=== PATIENT | female | born 1955 | race American Indian/Alaskan Native ===

== ENCOUNTER 2017-07-21 10:13 | Outpatient (CLI) | payer MEDICARE ==
--- NOTE | 2017-07-21 19:04 | XRay Report ---
FINAL REPORT EXAM: XR SPINE LUMBOSACRAL 6+V HISTORY: LUMBAR RADICULOPATHY TECHNIQUE: AP, lateral and coned-down views of lumbar spine. PRIORS: None. FINDINGS: Extensive postsurgical changes in lower lumbar spine, including interspace device in the L3-4 level and probable paraspinal bone graft material. Additional fixation hardware in right SI joint partially visualized. Variable disc space narrowing and endplate spurring in the T12-L1, L2-3 and L4-5 levels. Very mild anterolisthesis in L3-4 level. No loss of height or gross malalignment of lumbar vertebral bodies. No obvious osseous destruction. Paraspinal soft tissues grossly unremarkable. IMPRESSION: 1. No acute osseous abnormality. 2. Postsurgical and degenerative change.
--- NOTE | 2017-07-21 19:07 | XRay Report ---
FINAL REPORT EXAM: XR SPINE THORACIC 4+V HISTORY: POST LAMINECTOMY TECHNIQUE: AP and lateral views of thoracic spine. PRIORS: None. FINDINGS: No loss of height or gross malalignment of thoracic vertebral bodies. No obvious osseous destruction. Thoracic disc spaces maintained. Paraspinal soft tissues grossly unremarkable. IMPRESSION: 1. No acute osseous abnormality.
== END 2017-07-21 10:14 | disposition home or self-care (01) ==
LOC: XRAY 10:13
PROVIDERS: ATTEND Anesthesiology
DX: M47.26 Other spondylosis with radiculopathy, lumbar region (principal); M96.1 Postlaminectomy syndrome, not elsewhere classified; I10 Essential (primary) hypertension; F32.9 Major depressive disorder, single episode, unspecified; F41.9 Anxiety disorder, unspecified; F17.200 Nicotine dependence, unspecified, uncomplicated
CPT/HCPCS: 72074; 72114

== ENCOUNTER 2019-03-03 14:00 | Observation (INO) | payer MEDICARE ==
--- NOTE | 2019-03-03 14:22 | Event Note ---
ED Screening Note ED Screening Note: pt presents with dizziness and lightheadness that began two days ago left sided JOSHI began 1 hour ago right sided CP for two weeks no vision no numbness or weakness PMHx chronic back pain, HTN, DM This initial assessment/diagnostic orders/clinical plan/treatment(s) is/are subject to change based on patients health status, clinical progression and re- assessment by fellow clinical providers in the ED. Further treatment and workup at subsequent clinical providers discretion. Patient/guardian urged not to elope from the ED as their condition may be serious if not clinically assessed and managed. Initial orders include: CP protocol and CT head
[2019-03-03 14:46] LABS: Basophils % (Auto) 0.4 % (0.0-1.8); Eosinophils # (Auto) 0.2 K/mm3 (0.0-0.4); Eosinophils % (Auto) 1.7 % (0.0-4.3); Hematocrit 40.1 % (30.3-42.9); Hemoglobin 13.2 gm/dl (10.1-14.3); Lymphocytes # (Auto) 4.4 K/mm3 (1.2-5.4); Lymphocytes % (Auto) 38.4 % (13.4-35.0); Mean Corpuscular HGB Conc 33 % (30-34); Mean Corpuscular Volume 82 fl (79-97); Monocytes % (Auto) 8.4 % (0.0-7.3); Platelet Count 217 K/mm3 (140-440); Red Blood Count 4.88 M/mm3 (3.65-5.03); Red Cell Distribution Width 14.8 % (13.2-15.2)
[2019-03-03 15:09] LABS: Alanine Aminotransferase 19 units/L (7-56); Albumin 4.4 g/dL (3.9-5); BUN/Creatinine Ratio 15; Blood Urea Nitrogen 15 mg/dL (7-17); Calcium 9.9 mg/dL (8.4-10.2); Hemolysis Index 11
--- NOTE | 2019-03-03 15:32 | XRay Report ---
CHEST 2 VIEWS INDICATION: Chest pain. COMPARISON: None FINDINGS: Support devices: None. Heart: Within normal limits. Lungs/pleura: No acute air space or interstitial disease. No pneumothorax. Additional findings: None. IMPRESSION: No acute findings. Signer Name: Ramiro Nicole Jr, MD Signed: 03/03/2019 3:27 PM Workstation Name: [id number]
--- NOTE | 2019-03-03 16:55 | Cat Scan Report ---
CT HEAD WITHOUT CONTRAST INDICATION / CLINICAL INFORMATION: dizziness. TECHNIQUE: All CT scans at this location are performed using CT dose reduction for ALARA by means of automated e xposure control. COMPARISON: None available. FINDINGS: HEMORRHAGE: None. EXTRA-AXIAL SPACES: Normal in size and morphology for the patient's age. VENTRICULAR SYSTEM: Normal in size and morphology for the patient's age. CEREBRAL PARENCHYMA: No significant abnormality. No acute territorial infarct. MIDLINE SHIFT OR HERNIATION: None. CEREBELLUM / BRAINSTEM: No significant abnormality. ORBITS: Normal as visualized. SOFT TISSUES of HEAD: No significant abnormality. CALVARIUM: No significant abnormality. PARANASAL SINUSES / MASTOID AIR CELLS: Normal as visualized. ADDITIONAL FINDINGS: None. IMPRESSION: 1. No acute intracranial abnormality. Signer Name: Kaylee Starr MD Signed: 03/03/2019 4:51 PM Workstation Name: [id number]
[2019-03-03 17:26] LABS: Bilirubin,Urine NEG (Negative); Blood,Urine SM (Negative); Color,Urine Yellow (Yellow); Protein,Urine <15 mg/dL mg/dL (Negative); Urobilinogen,Urine < 2.0 mg/dL (<2.0)
--- NOTE | 2019-03-03 17:40 | Emergency Department Report ---
ED Dizziness HPI - General Chief Complaint: Dizziness Stated Complaint: FALL/LIGHTHEADED/DIZZINESS Time Seen by Provider: 03/03/19 14:20 Source: patient Mode of arrival: Ambulatory Limitations: No Limitations - History of Present Illness Initial Comments: Patient is a 63-year-old female that presents to the Emergency room with complaints of dizziness and lightheaded 2 days. Patient states that her symptoms are worsening. Patient states her symptoms are worse when she bends over and better with rest. Patient states her gait is unsteady and she has fallen multiple times. Patient denies trauma from the falls. Patient states she is having bilateral chest pain. Patient states her pain is better with rest and worse with exertion. MD Complaint: dizziness, lightheadedness -: Sudden Timing: sudden onset Description: sense of movement History of Same: No History of Trauma: No Severity: severe Improves With: rest Worsens With: movement, exertion Associated Symptoms: chest pain. denies: confusion, cough, diaphoresis, fever/chills, loss of appetite, malaise, rash, seizure, shortness of breath, syncope, weakness - Related Data Home Medications Medication Instructions Recorded Confirmed Last Taken Morphine ER [Ms Contin ER] 15 mg PO DAILY 08/04/13 09/30/15 09/29/15 Oxycodone HCl/Acetaminophen 1 tab PO TID 08/04/13 09/30/15 09/29/15 [Percocet 10/325 mg] Pregabalin [Lyrica] 75 cap PO TID 08/04/13 09/30/15 09/29/15 Valsartan [Diovan] 80 mg PO DAILY 08/04/13 09/30/15 09/29/15 metFORMIN [Glucophage] 500 mg PO DAILY 08/04/13 09/30/15 09/29/15 Pravastatin Sodium [Pravastatin] 40 mg PO QHS 09/30/15 09/30/15 09/29/15 Previous Rx's Medication Instructions Recorded Last Taken Type Hydrocortisone [Anucort-HC SUPPOS] 25 mg RC BID #10 supp.rect 09/30/15 Unknown Rx traMADol [Ultram] 50 mg PO Q6HR PRN #10 tablet 09/30/15 Unknown Rx Allergies Allergy/AdvReac Type Severity Reaction Status Date / Time aspirin AdvReac Unknown Verified 03/03/19 14:02 Sulfa (Sulfonamide AdvReac Unknown Verified 03/03/19 14:02 Antibiotics) ED Review of Systems ROS: Stated complaint: FALL/LIGHTHEADED/DIZZINESS Other details as noted in HPI Constitutional: denies: chills, fever Eyes: denies: eye pain, eye discharge, vision change ENT: denies: ear pain, throat pain Respiratory: denies: cough, shortness of breath, wheezing Cardiovascular: chest pain. denies: palpitations Endocrine: no symptoms reported Gastrointestinal: denies: abdominal pain, nausea, diarrhea Genitourinary: denies: urgency, dysuria, discharge Musculoskeletal: denies: back pain, joint swelling, arthralgia Skin: denies: rash, lesions Neurological: denies: headache, weakness, paresthesias Psychiatric: denies: anxiety, depression Hematological/Lymphatic: denies: easy bleeding, easy bruising ED Past Medical Hx - Past Medical History Previous Medical History?: Yes Hx Hypertension: Yes Hx Diabetes: Yes Hx GERD: Yes Hx Sickle Cell Disease: Yes (trait) Hx Arthritis: Yes Additional medical history: chronic back pain. neuropathy - Surgical History Past Surgical History?: Yes Additional Surgical History: partial hysterectomy. back surgery/fusion - Family History Family history: no significant - Social History Smoking Status: Never Smoker Substance Use Type: None - Medications Home Medications: Home Medications Medication Instructions Recorded Confirmed Last Taken Type Morphine ER [Ms Contin ER] 15 mg PO DAILY 08/04/13 09/30/15 09/29/15 History Oxycodone HCl/Acetaminophen 1 tab PO TID 08/04/13 09/30/15 09/29/15 History [Percocet 10/325 mg] Pregabalin [Lyrica] 75 cap PO TID 08/04/13 09/30/15 09/29/15 History Valsartan [Diovan] 80 mg PO DAILY 08/04/13 09/30/15 09/29/15 History metFORMIN [Glucophage] 500 mg PO DAILY 08/04/13 09/30/15 09/29/15 History Hydrocortisone [Anucort-HC SUPPOS] 25 mg RC BID #10 supp.rect 09/30/15 Unknown Rx Pravastatin Sodium [Pravastatin] 40 mg PO QHS 09/30/15 09/30/15 09/29/15 History traMADol [Ultram] 50 mg PO Q6HR PRN #10 tablet 09/30/15 Unknown Rx ED Physical Exam - General Limitations: No Limitations General appearance: alert, in no apparent distress - Head Head exam: Present: atraumatic, normocephalic - Eye Eye exam: Present: normal appearance, PERRL Pupils: Present: normal accommodation - ENT ENT exam: Present: mucous membranes moist - Neck Neck exam: Present: normal inspection - Respiratory Respiratory exam: Present: normal lung sounds bilaterally. Absent: respiratory distress, wheezes, rales - Cardiovascular Cardiovascular Exam: Present: regular rate, normal rhythm. Absent: systolic murmur, diastolic murmur, rubs, gallop - GI/Abdominal GI/Abdominal exam: Present: soft, normal bowel sounds - Extremities Exam Extremities exam: Present: normal inspection - Back Exam Back exam: Present: normal inspection - Neurological Exam Neurological exam: Present: alert, oriented X3 - Psychiatric Psychiatric exam: Present: normal affect, normal mood - Skin Skin exam: Present: warm, dry, intact, normal color. Absent: rash ED Course Vital Signs 03/03/19 03/03/19 14:03 14:21 Temperature 98.5 F Pulse Rate 97 H Respiratory 16 16 Rate Blood Pressure 139/67 [Left] O2 Sat by Pulse 97 97 Oximetry - Reevaluation(s) Reevaluation #1: Patient already received fluids. Patient still dizzy. Patient unable to ambulate without stumbling. Patient will be admitted to the hospitalist service. I discussed all results with patient. Discussed plan of care with patient. Patient agrees with plan of care. 03/03/19 19:44 - Consultations Consultation #1: Hospitalist consultation for admission. Hospitalist to admit patient 03/03/19 19:44 ED Medical Decision Making - Lab Data Result diagrams: 03/03/19 14:35 03/03/19 14:35 - EKG Data -: EKG Interpreted by Ms EKG shows normal: sinus rhythm, axis, intervals, QRS complexes, ST-T waves Rate: normal - Radiology Data Radiology results: report reviewed CT HEAD WITHOUT CONTRAST INDICATION / CLINICAL INFORMATION: dizziness. TECHNIQUE: All CT scans at this location are performed using CT dose reduction for ALARA by means of automated exposure control. COMPARISON: None available. FINDINGS: HEMORRHAGE: None. EXTRA-AXIAL SPACES: Normal in size and morphology for the patient's age. VENTRICULAR SYSTEM: Normal in size and morphology for the patient's age. CEREBRAL PARENCHYMA: No significant abnormality. No acute territorial infarct. MIDLINE SHIFT OR HERNIATION: None. CEREBELLUM / BRAINSTEM: No significant abnormality. ORBITS: Normal as visualized. SOFT TISSUES of HEAD: No significant abnormality. CALVARIUM: No significant abnormality. PARANASAL SINUSES / MASTOID AIR CELLS: Normal as visualized. ADDITIONAL FINDINGS: None. IMPRESSION: 1. No acute intracranial abnormality. CHEST 2 VIEWS INDICATION: Chest pain. COMPARISON: None FINDINGS: Support devices: None. Heart: Within normal limits. Lungs/pleura: No acute air space or interstitial disease. No pneumothorax. Additional findings: None. IMPRESSION: No acute findings. - Differential Diagnosis dizziness. Unsteady gait. Falls. Critical Care Time: Yes Critical care attestation.: If time is entered above; I have spent that time in minutes in the direct care of this critically ill patient, excluding procedure time. Critical Care Time: 35 minutes ED Disposition Clinical Impression: Dizziness, Falls frequently, Unstable gait HTN (hypertension) Qualifiers: Hypertension type: essential hypertension Qualified Code(s): I10 - Essential (primary) hypertension Type II diabetes mellitus Qualifiers: Diabetes mellitus terminal operator insulin use: unspecified shelter insulin use status Diabetes mellitus complication status: with other specified complication Qualified Code(s): E11.69 - Type 2 diabetes mellitus with other specified complication Disposition: 09 OP ADMIT IP TO THIS HOSP Is pt being admited?: Yes Does the pt Need Aspirin: No Condition: Critical Instructions: Hypertension (ED) Time of Disposition: 19:46
[2019-03-03] MEDS ORDERED: NACL 0.9% 1000 ML 1,000 ML IV ONE (19:24)
[2019-03-03] MEDS ORDERED: PERCOCET 5/325 PO PRN (22:02)
[2019-03-03] MEDS ORDERED: D50W (25GM) Syringe IV PRN (22:02)
[2019-03-03] MEDS ORDERED: ZOFRAN IV PRN (22:02)
[2019-03-03] MEDS ORDERED: SODIUM CHLORIDE FLUSH SYRINGE 10 ML IV PRN (22:02)
[2019-03-03] MEDS ORDERED: TYLENOL PO PRN (22:02)
--- NOTE | 2019-03-03 22:09 | History and Physical Report ---
History of Present Illness Date of examination: 03/03/19 History of present illness: 63-year-old man with a history of hypertension, diabetes, GERD, chronic pain comes emergency room with complaint of feeling dizzy, off balance 2 days. She said these symptoms before and was diagnosed with vertigo, instructed to do the exercises which brought relief to her symptoms. She stated that this time the exercises did not help. Also complaining of chest pain in the right chest which she describes as sharp pain, intubated for a few seconds, intensity 4/10, no radiation, genitalia exam factors. Denies nausea vomiting, shortness rate, diaphoresis or palpitation Review Of Systems: Constitutional: no weight loss, fever, chills Ears, eyes, nose, mouth and throat: no nasal congestion, no nasal discharge, no sinus pressure, blurry vision, diplopia Neck: No neck pain or rigidity. Cardiovascular: No palpitations, chest pain Respiratory: No shortness of breath, cough Gastrointestinal: No hematochezia, abdominal pain Genitourinary : no dysuria, frequency , hematuria Musculoskeletal: no muscle ache , joint pain Integumentary: no rash, no pruritis Neurological: no parathesias, focal weakness Endocrine: no cold or heat intolerance, no polyuria or polydipsia Hematologic/Lymphatic: no easy bruising, no easy bleeding, no gland swelling Allergic/Immunologic: no urticaria, no angioedema. PAST MEDICAL HISTORY:hypertension, diabetes, GERD, chronic pain PAST SURGICAL HISTORY: Hysterectomy, back FAMILY HISTORY:hypertension, diabetes SOCIAL HISTORY: + tobacco, no drugs, alcohol Medications and Allergies Allergies Allergy/AdvReac Type Severity Reaction Status Date / Time aspirin AdvReac Unknown Verified 03/03/19 14:02 Sulfa (Sulfonamide AdvReac Unknown Verified 03/03/19 14:02 Antibiotics) Home Medications Medication Instructions Recorded Confirmed Last Taken Type Morphine ER [Ms Contin ER] 15 mg PO DAILY 08/04/13 09/30/15 09/29/15 History Oxycodone HCl/Acetaminophen 1 tab PO TID 08/04/13 09/30/15 09/29/15 History [Percocet 10/325 mg] Pregabalin [Lyrica] 75 cap PO TID 08/04/13 09/30/15 09/29/15 History Valsartan [Diovan] 80 mg PO DAILY 0109/30/15 09/29/15 History metFORMIN [Glucophage] 500 mg PO DAILY 08/04/13 09/30/15 09/29/15 History Hydrocortisone [Anucort-HC SUPPOS] 25 mg RC BID #10 supp.rect 09/30/15 Unknown Rx Pravastatin Sodium [Pravastatin] 40 mg PO QHS 09/30/15 09/30/15 09/29/15 History traMADol [Ultram] 50 mg PO Q6HR PRN #10 tablet 09/30/15 Unknown Rx Active Meds: Active Medications Acetaminophen (Tylenol) 650 mg PO Q4H PRN PRN Reason: Pain MILD(1-3)/Fever >100.5/JOSHI Dextrose (D50w (25gm) Syringe) 50 ml IV PRN PRN PRN Reason: Hypoglycemia Enoxaparin Sodium (Lovenox) 30 mg SUB-Q QDAY LOS Ondansetron HCl (Zofran) 4 mg IV Q8H PRN PRN Reason: Nausea And Vomiting Oxycodone/Acetaminophen (Percocet 5/325) 1 tab PO Q6H PRN PRN Reason: Pain, Moderate (4-6) Sodium Chloride (Sodium Chloride Flush Syringe 10 Ml) 10 ml IV BID LOS Sodium Chloride (Sodium Chloride Flush Syringe 10 Ml) 10 ml IV PRN PRN PRN Reason: LINE FLUSH Exam - Physical Exam Narrative exam: General Apperance: The patient sitting in bed no acute distress HEENT: Normocephalic, atraumatic. Pupils equally round and reactive to light, extraocular movement intact, and no sclericterus or JVD or thyromegaly or nodule. Neck supple, no carotid bruit, mucous membranes moist, no exudate or erythema Heart: S1-S2, regular is rhythm Lungs: Clear to auscultation bilaterally, breathing comfortable Abdomen: Positive bowel sounds, soft, nontender, nondistended, no organomegaly Extremities: No edema cyanosis clubbing Skin: no rash, nodule, warm and dry Neuro:CN 2 -12 intact, motor/sensory intact, speech is fluent - Constitutional Vitals: Temp Pulse Resp BP Pulse Ox 98.5 F 97 H 16 139/67 97 03/03/19 14:21 03/03/19 14:21 03/03/19 14:21 03/03/19 14:21 03/03/19 14:21 Results - Labs CBC & Chem 7: 03/03/19 14:35 03/03/19 14:35 Labs: Abnormal lab results 03/03/19 03/03/19 Range/Units 14:35 14:35 WBC 11.3 H (4.5-11.0) K/mm3 MCH 27 L (28-32) pg Lymph % (Auto) 38.4 H (13.4-35.0) % [place] % (Auto) 8.4 H (0.0-7.3) % [place] # 1.0 H (0.0-0.8) K/mm3 Carbon Dioxide 20 L (22-30) mmol/L Glucose 177 H (65-100) mg/dL - Imaging and Cardiology EKG: image reviewed Chest x-ray: report reviewed CT Scan - head: report reviewed Assessment and Plan Assessment Atypical chest pain Dizziness Hyypertension Diabetes GERD Chronic pain Plan Admit medicine Check cardiac enzymes, stress test, carotid Doppler Check fingersticks initiate insulin sliding scale, start meclizine Continue her present outpatient medications Percocet, DVT prophylaxis
[2019-03-03] MEDS: ANTIVERT PO SCH (22:39)
[2019-03-03] MEDS ORDERED: ANTIVERT ONE (22:40)
[2019-03-04 05:48] LABS: Basophils % (Auto) 0.4 % (0.0-1.8); Eosinophils # (Auto) 0.2 K/mm3 (0.0-0.4); Eosinophils % (Auto) 2.6 % (0.0-4.3); Hematocrit 36.6 % (30.3-42.9); Lymphocytes # (Auto) 2.6 K/mm3 (1.2-5.4); Lymphocytes % (Auto) 38.1 % (13.4-35.0); Mean Corpuscular HGB Conc 33 % (30-34); Mean Corpuscular Volume 82 fl (79-97); Monocytes # (Auto) 0.7 K/mm3 (0.0-0.8); Monocytes % (Auto) 10.3 % (0.0-7.3); Platelet Count 183 K/mm3 (140-440); Red Blood Count 4.46 M/mm3 (3.65-5.03); Red Cell Distribution Width 14.6 % (13.2-15.2)
[2019-03-04] MEDS: ANTIVERT PO SCH ×4 (05:54→23:17)
[2019-03-04 06:11] LABS: BUN/Creatinine Ratio 21; Blood Urea Nitrogen 17 mg/dL (7-17); Calcium 9.3 mg/dL (8.4-10.2); Hemolysis Index 38
[2019-03-04] MEDS ORDERED: LEXISCAN IV ONE (07:20)
--- NOTE | 2019-03-04 11:33 | Vascular Lab Report ---
BILATERAL CAROTID DOPPLER ULTRASOUND INDICATION : Dizziness for 2 days, hypertension, diabetes TECHNIQUE: Grayscale and color Doppler imaging performed through the neck. COMPARISON: None FINDINGS: Right: There is mild calcific plaques are noted in the proximal ICA. Peak systolic velocity in the CCA is 65 cm/s with end-diastolic velocity of 20 cm/s. Peak systolic velocity in the proximal ICA is 65 cm/s with end-diastolic velocity of 17 cm/s. ICA to CCA ratio is less than 2. There is antegrade flow in the ECA and the vertebral artery. Left: There is no significant atherosclerotic disease. Peak systolic velocity in the CCA is 70 cm/s w ith end-diastolic velocity of 19 cm/s. Peak systolic velocity in the proximal ICA is 50 cm/s with end -diastolic velocity of 16 cm/s. ICA to CCA ratio is less than 2. There is antegrade flow in the ECA and the vertebral artery. IMPRESSION: No hemodynamically significant stenosis by NASCET criteria. There is less than 50% lumina l narrowing in both carotid systems. Signer Name: Ramiro Nicole Jr, MD Signed: 03/04/2019 11:29 AM Workstation Name: [id number]
[2019-03-04] MEDS: SODIUM CHLORIDE FLUSH SYRINGE 10 ML IV SCH ×2 (12:23→23:18)
[2019-03-04] MEDS: LOVENOX SUB-Q SCH (13:19)
--- NOTE | 2019-03-04 13:56 | Progress Note ---
Assessment and Plan Assessment and plan: Chest pain. Continue to monitor cardiac isoenzymes. Serial EKG. Follow-up stress test results. BPH. Continue meclizine. Patient still with significant symptoms. Diabetes mellitus type 2. Continue Accu-Cheks and sliding scale insulin. Hypertension. Continue antihypertensive medications. Disposition. Anticipate discharge in a.m. History Interval history: No new issues overnight. Hospitalist Physical - Constitutional Vitals: Temp Pulse Resp BP Pulse Ox 98.3 F 82 16 157/67 97 03/04/19 12:21 03/04/19 12:21 03/04/19 12:21 03/04/19 12:21 03/04/19 12:21 General appearance: Present: no acute distress, well-nourished - EENT Eyes: Present: PERRL, EOM intact ENT: hearing intact, clear oral mucosa, dentition normal - Neck Neck: Present: supple, normal ROM - Respiratory Respiratory effort: normal Respiratory: bilateral: CTA - Cardiovascular Rhythm: regular Heart Sounds: Present: S1 & S2. Absent: gallop, rub - Extremities Extremities: no ischemia, No edema, Full ROM - Abdominal General gastrointestinal: soft, non-tender, non-distended, normal bowel sounds - Integumentary Integumentary: Present: clear, warm, dry - Neurologic Neurologic: CNII-XII intact, moves all extremities Results - Labs CBC & Chem 7: 03/04/19 05:05 03/04/19 05:05 Labs: Laboratory Last Values WBC 6.9 K/mm3 (4.5-11.0) 03/04/19 05:05 RBC 4.46 M/mm3 (3.65-5.03) 03/04/19 05:05 Hgb 12.0 gm/dl (10.1-14.3) 03/04/19 05:05 Hct 36.6 % (30.3-42.9) 03/04/19 05:05 MCV 82 fl (79-97) 03/04/19 05:05 MCH 27 pg (28-32) L 03/04/19 05:05 MCHC 33 % (30-34) 03/04/19 05:05 RDW 14.6 % (13.2-15.2) 03/04/19 05:05 Plt Count 183 K/mm3 (140-440) 03/04/19 05:05 Lymph % (Auto) 38.1 % (13.4-35.0) H 03/04/19 05:05 [place] % (Auto) 10.3 % (0.0-7.3) H 03/04/19 05:05 Eos % (Auto) 2.6 % (0.0-4.3) 03/04/19 05:05 Baso % (Auto) 0.4 % (0.0-1.8) 03/04/19 05:05 Lymph # 2.6 K/mm3 (1.2-5.4) 03/04/19 05:05 [place] # 0.7 K/mm3 (0.0-0.8) 03/04/19 05:05 Eos # 0.2 K/mm3 (0.0-0.4) 03/04/19 05:05 Baso # 0.0 K/mm3 (0.0-0.1) 03/04/19 05:05 Seg Neutrophils % 48.6 % (40.0-70.0) 03/04/19 05:05 Seg Neutrophils # 3.3 K/mm3 (1.8-7.7) 03/04/19 05:05 1362.34 ng/mlDDU (0-234) H 03/04/19 11:43 Sodium 140 mmol/L (137-145) 03/04/19 05:05 Potassium 4.3 mmol/L (3.6-5.0) 03/04/19 05:05 Chloride 103.9 mmol/L (98-107) 03/04/19 05:05 Carbon Dioxide 26 mmol/L (22-30) 03/04/19 05:05 14 mmol/L 03/04/19 05:05 BUN 17 mg/dL (7-17) 03/04/19 05:05 0.8 mg/dL (0.7-1.2) 03/04/19 05:05 Estimated GFR > 60 ml/min 03/04/19 05:05 21 % 03/04/19 05:05 Glucose 151 mg/dL (65-100) H 03/04/19 05:05 Calcium 9.3 mg/dL (8.4-10.2) 03/04/19 05:05 0.20 mg/dL (0.1-1.2) 03/03/19 14:35 AST 15 units/L (5-40) 03/03/19 14:35 ALT 19 units/L (7-56) 03/03/19 14:35 67 units/L (35-129) 03/03/19 14:35 < 0.010 ng/mL (0.00-0.029) 03/03/19 17:19 7.6 g/dL (6.3-8.2) 03/03/19 14:35 4.4 g/dL (3.9-5) 03/03/19 14:35 1.4 % 03/03/19 14:35 Yellow (Yellow) 03/03/19 14:22 Clear (Clear) 03/03/19 14:22 5.0 (5.0-7.0) 03/03/19 14:22 Ur Specific [place] 1.018 (1.003-1.030) 03/03/19 14:22 <15 mg/dl mg/dL (Negative) 03/03/19 14:22 >=500 mg/dL (Negative) 03/03/19 14:22 Neg mg/dL (Negative) 03/03/19 14:22 Sm (Negative) 03/03/19 14:22 Neg (Negative) 03/03/19 14:22 Neg (Negative) 03/03/19 14:22 < 2.0 mg/dL (<2.0) 03/03/19 14:22 Ur Leukocyte Esterase Tr (Negative) 03/03/19 14:22 2.0 /HPF (0.0-6.0) 03/03/19 14:22 1.0 /HPF (0.0-6.0) 03/03/19 14:22 U Epithel Cells (Auto) < 1.0 /HPF (0-13.0) 03/03/19 14:22 Active Medications - Current Medications Current Medications: Generic Name Dose Route Start Last Admin Trade Name Freq PRN Reason Stop Dose Admin Acetaminophen 650 mg 03/03/19 22:02 03/04/19 00:19 Tylenol PO 650 mg Q4H PRN Administration Pain MILD(1-3)/Fever >100.5/JOSHI Dextrose 50 ml 03/03/19 22:02 D50w (25gm) Syringe IV PRN PRN Hypoglycemia Enoxaparin Sodium 40 mg 03/04/19 10:00 03/04/19 13:19 Lovenox SUB-Q Not Given QDAY LOS Meclizine HCl 25 mg 03/03/19 22:13 03/04/19 12:23 Antivert PO 25 mg Q6HR LOS Administration Ondansetron HCl 4 mg 03/03/19 22:02 Zofran IV Q8H PRN Nausea And Vomiting Oxycodone/Acetaminophen 1 tab 03/03/19 22:02 Percocet 5/325 PO Q6H PRN Pain, Moderate (4-6) Sodium Chloride 10 ml 03/04/19 10:00 03/04/19 12:23 Sodium Chloride Flush Syringe 10 Ml IV 10 ml BID LOS Administration Sodium Chloride 10 ml 03/03/19 22:02 Sodium Chloride Flush Syringe 10 Ml IV PRN PRN LINE FLUSH
--- NOTE | 2019-03-05 00:42 | Treadmill Report ---
FINDINGS: Resting images revealed homogeneous radioisotope activity with slightly increased gut uptake. On post-Lexiscan, again similar uptake is noted. On gated scan, ejection fraction was noted to be 61%. There was transient ischemic dilatation of significance with 1.37. IMPRESSION: 1. Ejection fraction is normal. 2. There is no area of ischemia. 3. Transient ischemic dilatation of moderate degree, may suggest severe triple vessel disease and proximal disease. Clinical correlation and recommendation suggested. JOB# [id number] MATT/JEFERSON
[2019-03-05] MEDS: ANTIVERT PO SCH ×2 (05:21→11:50)
--- NOTE | 2019-03-05 07:58 | Discharge Summary ---
Providers - Providers Date of Admission: 03/03/19 22:02 Date of discharge: 03/05/19 Attending physician: ANTOINE PEREZ Primary care physician: [employer] Hospitalization Reason for admission: vertigo Condition: Critical Exam - Constitutional Vitals: Temp Pulse Resp BP Pulse Ox 98.0 F 78 18 129/66 96 03/05/19 04:28 03/05/19 04:28 03/05/19 04:28 03/05/19 04:28 03/05/19 04:28 Plan
[2019-03-05 08:34] VITALS: BP 147/87
[2019-03-05] MEDS: SODIUM CHLORIDE FLUSH SYRINGE 10 ML IV SCH (09:55)
[2019-03-05] MEDS: LOVENOX SUB-Q SCH (09:55)
--- NOTE | 2019-03-05 10:10 | Consultation ---
History of Present Illness Consult date: 03/05/19 Requesting physician: ANTOINE PEREZ Consult reason: other (abnormal stress test) History of present illness: Ms. Duncan is a 63 y/o female with a medical history significant for hypertension, diabetes and benign positional vertigo who presented to [facility] with dizziness, lightheadedness and chest pain x2 months. She is not followed by our practice. She describes the pain as right-sided, non-radiating and occurring intermittently at rest and with activity. Troponins were negative, and EKG was negative for STEMI; however, a stress test was abnormal, revealing transient ischemic dilatation of moderate degree, possibly suggesting severe triple vessel disease and proximal disease. An echocardiogram found an EF of 55 to 60 percent with abnormal LV diastolic filling and mildly thickened mitral va lve leaflets. She denies chest pain on examination this morning. Past History Past Medical History: hypertension Medications and Allergies Allergies Allergy/AdvReac Type Severity Reaction Status Date / Time aspirin AdvReac Unknown Verified 03/03/19 14:02 Sulfa (Sulfonamide AdvReac Unknown Verified 03/03/19 14:02 Antibiotics) Home Medications Medication Instructions Recorded Confirmed Last Taken Type Morphine ER [Ms Contin ER] 15 mg PO DAILY 08/04/13 03/04/19 2 Days Ago History ~03/02/19 Oxycodone HCl/Acetaminophen 10 mg PO TID 08/04/13 03/04/19 2 Days Ago History [Percocet 10/325 mg] ~03/02/19 Pregabalin [Lyrica] 75 cap PO BID 08/04/13 03/04/19 2 Days Ago History ~03/02/19 Valsartan [Diovan] 80 mg PO DAILY 08/04/13 03/04/19 2 Days Ago History ~03/02/19 Hydrocortisone [Anucort-HC SUPPOS] 25 mg RC BID #10 supp.rect 09/30/15 03/04/19 Unknown Rx Citalopram [celeXA] 10 mg PO QDAY #30 tablet 03/05/19 Unknown Rx Meclizine [Antivert] 25 mg PO Q6HR #20 tablet 03/05/19 Unknown Rx Pravastatin Sodium [Pravastatin] 40 mg PO QHS #30 tablet 03/05/19 Unknown Rx Verapamil [Calan] 240 mg PO DAILY #30 tablet 03/05/19 Unknown Rx cloNIDine [Catapres] 0.1 mg PO DAILY #30 tablet 03/05/19 Unknown Rx metFORMIN [Glucophage] 2,000 mg PO DAILY #30 tablet 03/05/19 Unknown Rx oxyCODONE /ACETAMINOPHEN [Percocet 1 tab PO Q6H PRN #8 tablet 03/05/19 Unknown Rx 5/325 mg] Active Meds: Active Medications Acetaminophen (Tylenol) 650 mg PO Q4H PRN PRN Reason: Pain MILD(1-3)/Fever >100.5/JOSHI Last Admin: 03/04/19 00:19 Dose: 650 mg Documented by: Dextrose (D50w (25gm) Syringe) 50 ml IV PRN PRN PRN Reason: Hypoglycemia Enoxaparin Sodium (Lovenox) 40 mg SUB-Q QDAY [facility] Last Admin: 03/05/19 09:55 Dose: 40 mg Documented by: Meclizine HCl (Antivert) 25 mg PO Q6HR [facility] Last Admin: 03/05/19 05:21 Dose: 25 mg Documented by: Ondansetron HCl (Zofran) 4 mg IV Q8H PRN PRN Reason: Nausea And Vomiting Oxycodone/Acetaminophen (Percocet 5/325) 1 tab PO Q6H PRN PRN Reason: Pain, Moderate (4-6) Sodium Chloride (Sodium Chloride Flush Syringe 10 Ml) 10 ml IV BID [facility] Last Admin: 03/05/19 09:55 Dose: 10 ml Documented by: Sodium Chloride (Sodium Chloride Flush Syringe 10 Ml) 10 ml IV PRN PRN PRN Reason: LINE FLUSH Review of Systems All systems: negative Neurological: other (dizziness, lightheadedness) Physical Examination Last Vital Signs Temp 98.1 F 03/05/19 07:41 Pulse 83 03/05/19 07:41 Resp 18 03/05/19 07:41 BP 147/87 03/05/19 07:41 Pulse Ox 95 03/05/19 07:41 General appearance: no acute distress HEENT: Positive: PERRL Neck: Positive: neck supple Cardiac: Positive: Reg Rate and Rhythm Lungs: Positive: Normal Exam Neuro: Positive: Grossly Intact Abdomen: Positive: Unremarkable Female genitourinary: deferred Skin: Positive: Clear Musculoskeletal: Normal Range of Motion Extremities: Present: normal Results 03/04/19 05:05 03/04/19 05:05 - Imaging and Cardiology Stress echo: other (03/05/19: TST - transient ischemic dilatation of mod degree, poss suggestive of triple vessel dz and proximal dz) Echo: report reviewed (03/04/19: EF 55-60%, abnormal LV diastolic filling, mildly thickened mitral valve leaflets) - EKG Interpretation EKG: sinus rhythm EKG interpretations - Telemetry EKG Rhythm: Sinus Rhythm Assessment and Plan Ms. Duncan is a 63 y/o female who presented with dizziness, lightheadedness and ch est pain. She has a history of hypertension, diabetes and BPV. She currently denies chest pain and there is no evidence of CA. The TID noted on stress test is of no significance and there is no evidence of ischemia. We do not recommend any additional diagnostic testing at this time. She is stable from a cardiac standpoint and may be discharged home from our perspective. Follow up in our office with Dr. Lucas in 7-10 days. Call for an appointment. The patient has been seen in conjunction with Dr. Lucas, who agrees with the assessment and plan. - Patient Problems (1) BPV (benign positional vertigo) Current Visit: Yes Status: Acute (2) Dizziness Current Visit: Yes Status: Acute (3) HTN (hypertension) Current Visit: Yes Status: Chronic Qualifiers: Hypertension type: essential hypertension Qualified Code(s): I10 - Essential (primary) hypertension (4) Type II diabetes mellitus Current Visit: Yes Status: Chronic Qualifiers: Diabetes mellitus manager intermediate insulin use: unspecified manager intermediate insulin use status Diabetes mellitus complication status: with other specified complication Qualified Code(s): E11.69 - Type 2 diabetes mellitus with other specified complication (5) Abnormal nuclear stress test Current Visit: Yes Status: Acute
--- NOTE | 2019-03-05 10:48 | Discharge Summary ---
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 Duncan is a 63 y/o female with a medical history significant for hypertension, diabetes and benign positional vertigo who presented to [facility] with dizziness, lightheadedness and chest pain x2 months. She is not followed by our practice. She describes the pain as right-sided, non-radiating and occurring intermittently at rest and with activity. Troponins were negative, and EKG was negative for STEMI; however, a stress test was abnormal, revealing transient ischemic dilatation of moderate degree, possibly suggesting severe triple vessel disease and proximal disease. An echocardiogram found an EF of 55 to 60 percent with abnormal LV diastolic filling and mildly thickened mitral valve leaflets. The patient was seen by cardiology in consultation. Cardiology's evaluation reported TID noted on stress test is of no significance and there is no evidence of ischemia. Etiology of chest pain is likely GERD. With regards to the vertigo, patient was treated with meclizine with resolution of symptoms. Other issues during hospital stay included elevated d-dimer. CTA of the chest was ordered but the patient refused. Patient is felt to have received maximal hospital benefit for discharge. Dedicated discharge time 32 minutes. Disposition: - TO HOME OR SELFCARE Time spent for discharge: 32 - Discharge Diagnoses (1) BPV (benign positional vertigo) Status: Acute (2) Dizziness Status: Acute (3) HTN (hypertension) Status: Chronic Qualifiers: Hypertension type: essential hypertension Qualified Code(s): I10 - Essential (primary) hypertension (4) GERD (gastroesophageal reflux disease) Status: Chronic Core Measure Documentation - Palliative Care Palliative Care/ Comfort Measures: Not Applicable - Core Measures Any of the following diagnoses?: none Exam - Constitutional Vitals: Temp Pulse Resp BP Pulse Ox 98.1 F 83 18 147/87 95 03/05/19 07:41 03/05/19 07:41 03/05/19 07:41 03/05/19 07:41 03/05/19 07:41 General appearance: Present: no acute distress, well-nourished - EENT Eyes: Present: PERRL ENT: hearing intact, clear oral mucosa - Neck Neck: Present: supple, normal ROM - Respiratory Respiratory effort: normal Respiratory: bilateral: CTA - Cardiovascular Heart Sounds: Present: S1 & S2. Absent: rub, click - Extremities Extremities: pulses symmetrical, No edema Peripheral Pulses: within normal limits - Abdominal General gastrointestinal: Present: soft, non-tender, non-distended, normal bowel sounds Female genitourinary: Present: normal - Integumentary Integumentary: Present: clear, warm, dry - Musculoskeletal Musculoskeletal: gait normal, strength equal bilaterally - Psychiatric Psychiatric: appropriate mood/affect, intact judgment & insight - Neurologic Neurologic: CNII-XII intact, moves all extremities Plan Activity: advance as tolerated Weight Bearing Status: Weight Bear as Tolerated Diet: diabetic Follow up with: PRIMARY CARE,MD [Primary Care Provider] - 7 Days Prescriptions: Meclizine [Antivert] 25 mg PO Q6HR #20 tablet Verapamil [Calan] 240 mg PO DAILY #30 tablet cloNIDine [Catapres] 0.1 mg PO DAILY #30 tablet Citalopram [celeXA] 10 mg PO QDAY #30 tablet metFORMIN [Glucophage] 2,000 mg PO DAILY #30 tablet oxyCODONE /ACETAMINOPHEN [Percocet 5/325 mg] 1 tab PO Q6H PRN #8 tablet PRN Reason: Pain, Moderate (4-6) Pravastatin Sodium [Pravastatin] 40 mg PO QHS #30 tablet
== END 2019-03-05 11:50 | disposition home or self-care (01) ==
LOC: ED 14:00 → 4A 22:02
PROVIDERS: ADMIT Internal Medicine; ATTEND Hospitalist
DX: R42 Dizziness and giddiness (principal); R07.89 Other chest pain; I10 Essential (primary) hypertension; E11.9 Type 2 diabetes mellitus without complications; K21.9 Gastro-esophageal reflux disease without esophagitis; G89.29 Other chronic pain; F17.200 Nicotine dependence, unspecified, uncomplicated
CPT/HCPCS: 36415; 70450; 71046; 78452; 80048; 80053; 81001; 84484; 85025; 85379; 87116; 93005; 93010; 93017; 93306; 93880; 96360; 96372; 99284; A9502; G0378; J1650; J2785; J7030

== ENCOUNTER 2020-07-27 22:35 | Emergency (ER) | payer MEDICARE ==
[2020-07-28] MEDS ORDERED: dexAMETHasone 20 MG/5 ML VIAL IM ONE (02:47)
[2020-07-28] MEDS ORDERED: ACETAMINOPHEN 500 MG TAB PO ONE (02:48)
--- NOTE | 2020-07-28 03:51 | Emergency Department Report ---
ED Extremity Problem HPI - General Chief complaint: Extremity Injury, Lower Stated complaint: SWOLLEN RT KNEE AND LEG Source: patient Mode of arrival: Ambulatory Limitations: No Limitations - History of Present Illness Initial comments: Patient is a 64-year-old -[place] female with a history of chronic morbid obesity, chronic osteoarthritis, CHF, hypertension, GERD, chronic low back pain and [id number] diabetes who presented to the ED with acute exacerbation of her chronic right hip and right knee pain after heavy lifting at home 2 days ago. Patient states that she has been taking her narcotic pain medications at home with no relief. Patient denies fall, traumatic injury, headache, dizziness, syncope, chest pain, shortness of breath, lower extremity swelling, urinary or bowel incontinence, abdominal pain, numbness and tingling or weakness of lower extremities bilaterally. MD Complaint: extremity pain (right hip and knee pain), joint paint (right hip and knee) -: Sudden, week(s) (1) Location: right (hip and knee), lower extremity (right knee and hip pain) History of Same: No -: Yes arthralgia (right hip and knee), No fever, No associated dyspnea, No associated chest pain Severity scale (0 -10): 8 Quality: aching, sharp Consistency: constant Improves with: nothing Worsens with: weight bearing, walking, exertion, palpation - Related Data Home Medications Medication Instructions Recorded Confirmed Last Taken Morphine ER [Ms Contin ER] 15 mg PO DAILY 08/04/13 03/04/19 2 Days Ago ~03/02/19 Oxycodone HCl/Acetaminophen 10 mg PO TID 08/04/13 03/04/19 2 Days Ago [Percocet 10/325 mg] ~03/02/19 Pregabalin [Lyrica] 75 cap PO BID 08/04/13 03/04/19 2 Days Ago ~03/02/19 Valsartan [Diovan] 80 mg PO DAILY 08/04/13 03/04/19 2 Days Ago ~03/02/19 Previous Rx's Medication Instructions Recorded Last Taken Type Hydrocortisone [Anucort-HC SUPPOS] 25 mg RC BID #10 supp.rect 09/30/15 Unknown Rx Citalopram [celeXA] 10 mg PO QDAY #30 tablet 03/05/19 Unknown Rx Meclizine [Antivert] 25 mg PO Q6HR #20 tablet 03/05/19 Unknown Rx Pravastatin Sodium [Pravastatin] 40 mg PO QHS #30 tablet 03/05/19 Unknown Rx cloNIDine [Catapres] 0.1 mg PO DAILY #30 tablet 03/05/19 Unknown Rx metFORMIN [Glucophage] 2,000 mg PO DAILY #30 tablet 03/05/19 Unknown Rx oxyCODONE /ACETAMINOPHEN [Percocet 1 tab PO Q6H PRN #8 tablet 03/05/19 Unknown Rx 5/325 mg] verapamiL [Calan] 240 mg PO DAILY #30 tablet 03/05/19 Unknown Rx methOCARBAMOL [Robaxin TAB] 750 mg PO Q12H PRN #30 tab 07/28/20 Unknown Rx predniSONE [Deltasone] 40 mg PO QDAY #10 tab 07/28/20 Unknown Rx Allergies Allergy/AdvReac Type Severity Reaction Status Date / Time aspirin AdvReac Unknown Verified 03/03/19 14:02 Sulfa (Sulfonamide AdvReac Unknown Verified 03/03/19 14:02 Antibiotics) ED Review of Systems ROS: Stated complaint: SWOLLEN RT KNEE AND LEG Other details as noted in HPI Constitutional: denies: chills, fever Eyes: denies: eye pain, eye discharge, vision change ENT: denies: ear pain, throat pain Respiratory: denies: cough, shortness of breath, wheezing Cardiovascular: denies: chest pain, palpitations Endocrine: no symptoms reported Gastrointestinal: denies: abdominal pain, nausea, diarrhea Genitourinary: denies: urgency, dysuria, discharge Musculoskeletal: arthralgia (right hip and knee pain). denies: back pain, joint swelling Skin: denies: rash, lesions Neurological: denies: headache, weakness, paresthesias Psychiatric: denies: anxiety, depression Hematological/Lymphatic: denies: easy bleeding, easy bruising ED Past Medical Hx - Past Medical History Previous Medical History?: Yes Hx Hypertension: Yes Hx Congestive Heart Failure: Yes Hx Diabetes: Yes Hx GERD: Yes Hx Arthritis: Yes Hx Asthma: No Hx COPD: No Additional medical history: chronic back pain. neuropathy - Surgical History Past Surgical History?: Yes Additional Surgical History: partial hysterectomy. back surgery/fusion - Social History Smoking Status: Current Every Day Smoker Substance Use Type: None - Medications Home Medications: Home Medications Medication Instructions Recorded Confirmed Last Taken Type Morphine ER [Ms Contin ER] 15 mg PO DAILY 08/04/13 03/04/19 2 Days Ago History ~03/02/19 Oxycodone HCl/Acetaminophen 10 mg PO TID 08/04/13 03/04/19 2 Days Ago History [Percocet 10/325 mg] ~03/02/19 Pregabalin [Lyrica] 75 cap PO BID 08/04/13 03/04/19 2 Days Ago History ~03/02/19 Valsartan [Diovan] 80 mg PO DAILY 08/04/13 03/04/19 2 Days Ago History ~03/02/19 Hydrocortisone [Anucort-HC SUPPOS] 25 mg RC BID #10 supp.rect 09/30/15 03/04/19 Unknown Rx Citalopram [celeXA] 10 mg PO QDAY #30 tablet 03/05/19 Unknown Rx Meclizine [Antivert] 25 mg PO Q6HR #20 tablet 03/05/19 Unknown Rx Pravastatin Sodium [Pravastatin] 40 mg PO QHS #30 tablet 03/05/19 Unknown Rx cloNIDine [Catapres] 0.1 mg PO DAILY #30 tablet 03/05/19 Unknown Rx metFORMIN [Glucophage] 2,000 mg PO DAILY #30 tablet 03/05/19 Unknown Rx oxyCODONE /ACETAMINOPHEN [Percocet 1 tab PO Q6H PRN #8 tablet 03/05/19 Unknown Rx 5/325 mg] verapamiL [Calan] 240 mg PO DAILY #30 tablet 03/05/19 Unknown Rx methOCARBAMOL [Robaxin TAB] 750 mg PO Q12H PRN #30 tab 07/28/20 Unknown Rx predniSONE [Deltasone] 40 mg PO QDAY #10 tab 07/28/20 Unknown Rx ED Physical Exam - General Limitations: No Limitations General appearance: alert, in no apparent distress - Head Head exam: Present: atraumatic, normocephalic, normal inspection - Eye Eye exam: Present: normal appearance, PERRL, EOMI Pupils: Present: normal accommodation - ENT ENT exam: Present: normal exam, normal orophraynx, mucous membranes moist, TM's normal bilaterally, normal external ear exam - Neck Neck exam: Present: normal inspection, full ROM. Absent: tenderness - Respiratory Respiratory exam: Present: normal lung sounds bilaterally. Absent: respiratory distress, wheezes, rales, stridor, chest wall tenderness, accessory muscle use, decreased breath sounds, prolonged expiratory - Cardiovascular Cardiovascular Exam: Present: regular rate, normal rhythm, normal heart sounds. Absent: systolic murmur, diastolic murmur, rubs, gallop - GI/Abdominal GI/Abdominal exam: Present: soft, normal bowel sounds. Absent: tenderness, guarding, rebound, hypoactive bowel sounds, organomegaly - Extremities Exam Extremities exam: Present: normal inspection, full ROM, tenderness (Palpable right hip and knee tenderness), normal capillary refill. Absent: pedal edema, joint swelling, calf tenderness - Back Exam Back exam: Present: normal inspection, full ROM. Absent: tenderness, CVA tenderness (R), CVA tenderness (L), muscle spasm, paraspinal tenderness, vertebral tenderness - Neurological Exam Neurological exam: Present: alert, oriented X3, CN II-XII intact, normal gait, reflexes normal - Psychiatric Psychiatric exam: Present: normal affect, normal mood - Skin Skin exam: Present: warm, dry, intact, normal color. Absent: rash ED Course Vital Signs 07/27/20 23:20 Temperature 99.2 F Pulse Rate 116 H Respiratory 18 Rate Blood Pressure 146/80 O2 Sat by Pulse 92 Oximetry ED Medical Decision Making - Medical Decision Making This is a 64-year-old -[place] female with a history of chronic morbid obesity, chronic osteoarthritis, CHF, hypertension, GERD, chronic low back pain and sik-ffpvrjh-owauqoddc diabetes who presented to the ED with acute exacerbation of her chronic right hip and right knee pain after heavy lifting at home 2 days ago. Patient states that she has been taking her narcotic pain medications at home with no relief. In the ED, patient is alert and oriented x3 and is not in distress but appears to be in pain. Patient was treated for pain in the ED. On reevaluation, patient's pain is well controlled medications. Patient was discharged home on medications and advised to follow-up with her primary care physician in 3 to 5 days for reevaluation. Patient was advised to return to the ED immediately if symptoms get worse. - Differential Diagnosis Osteorarthritis; Muscle strain; tendonitis; Bursitis Critical care attestation.: If time is entered above; I have spent that time in minutes in the direct care of this critically ill patient, excluding procedure time. ED Disposition Clinical Impression: Chronic osteoarthritis Bursitis of right hip Qualifiers: Hip bursitis location: unspecified Qualified Code(s): M70.71 - Other bursitis of hip, right hip Muscle strain of right lower leg Qualifiers: Encounter type: initial encounter Qualified Code(s): S86.911A - Strain of unspecified muscle(s) and tendon(s) at lower leg level, right leg, initial encounter Disposition: TO HOME OR SELFCARE Is pt being admited?: No Does the pt Need Aspirin: No Condition: Stable Instructions: Hip Bursitis, [id number], Muscle Strain, [id number], Arthritis, [id number] Additional Instructions: Take medication with food, drink plenty of fluids and follow-up with your primary care physician in 7 to 10 days for reevaluation. Return to the ED immediately if symptoms get worse. Prescriptions: predniSONE [Deltasone] 40 mg PO QDAY #10 tab methOCARBAMOL [Robaxin TAB] 750 mg PO Q12H PRN #30 tab PRN Reason: Muscle Spasm Referrals: LENORE LUNDBERG MD [Staff Physician] - 3-5 Days Time of Disposition: 03:52 Print Language: DIVEHI
[2020-07-28 04:19] VITALS: BP 128/78
== END 2020-07-28 04:19 | disposition home or self-care (01) ==
LOC: ED 22:35
DX: S86.911A Strain of unspecified muscle(s) and tendon(s) at lower leg level, right leg, initial encounter (principal); M70.71 Other bursitis of hip, right hip; M19.90 Unspecified osteoarthritis, unspecified site; I11.0 Hypertensive heart disease with heart failure; I50.9 Heart failure, unspecified; E11.9 Type 2 diabetes mellitus without complications; K21.9 Gastro-esophageal reflux disease without esophagitis; F17.200 Nicotine dependence, unspecified, uncomplicated; Z90.710 Acquired absence of both cervix and uterus; Z79.899 Other long term (current) drug therapy; Z88.6 Allergy status to analgesic agent; X50.0XXA Overexertion from strenuous movement or load, initial encounter; Y93.89 Activity, other specified; Y92.89 Other specified places as the place of occurrence of the external cause; Y99.8 Other external cause status
CPT/HCPCS: 96372; 99282; J1100